=== PATIENT | male | born 1995 | race American Indian/Alaskan Native ===

== ENCOUNTER 2021-12-06 12:03 | Emergency (ER) | payer OTHER ==
[2021-12-06] MEDS ORDERED: ALBUTEROL 2.5 MG/3 ML NEBU IH ONE (12:24)
[2021-12-06] MEDS ORDERED: IPRATROPIUM 0.02% NEBU 2.5 ML IH ONE (12:24)
[2021-12-06] MEDS ORDERED: methylPREDNISolone Sod Succinate 125 MG/2 ML INJ IM ONE (12:24)
[2021-12-06] MEDS ORDERED: IBUPROFEN 600 MG TAB PO ONE (12:25)
--- NOTE | 2021-12-06 12:34 | Emergency Department Report ---
ED Back Pain/Injury HPI - General Chief Complaint: Back Pain/Injury Stated Complaint: BACK PAIN/CHEST PAIN TROUBLE BREATHING Source: patient Limitations: No Limitations - History of Present Illness Initial Comments: Patient is a 26-year-old -[place] male with a history of asthma who presents to the ED with complaint of acute onset persistent chest tightness, shortness of breath, persistent dry cough and mid posterior thoracic pain for the last 3 days. Patient states that in 2 days he has completely used and emptied 2 albuterol inhalers with mild relief. Patient denies headache, dizziness, chest pain or fever, chills, nausea and vomiting, abdominal pain, traumatic injury, heavy lifting, change in vision, neck pain, sore throat, dysuria, urinary frequency and urgency or fall. MD Complaint: back pain, other (Shortness of breath, chest tightness, asthma exacerbation) -: Sudden, days(s) (3) Similar Symptoms Previously: Yes Place: home Radiation: none Severity: moderate Quality: aching, other (Tightness) Consistency: constant Improves With: none Worsens With: movement Associated Symptoms: denies other symptoms, chest pain (Chest tightness), cough, other (Mid posterior thoracic pain). denies: confusion, weakness, difficulty walking, difficulty urinating, diaphoresis, incontinence, fever/chills, constipation, headaches, abdominal pain, loss of appetite, malaise, nausea/vomiting, rash, seizure, shortness of breath Treatments Prior to Arrival: other medications (Albuterol inhaler) - Related Data Previous Rx's Medication Instructions Recorded Last Taken Type Albuterol Sulfate [Proair 1 - 2 puff IH Q6H PRN #1 inh 12/06/21 Unknown Rx Respiclick] Baclofen 20 mg PO Q12H PRN #24 tab 12/06/21 Unknown Rx Benzonatate [Tessalon Perles] 100 mg PO Q8HR #30 cap 12/06/21 Unknown Rx Cetirizine HCl [Zyrtec 10mg tab] 10 mg PO DAILY #30 tab 12/06/21 Unknown Rx Naproxen 500 mg PO Q12H PRN #30 tab 12/06/21 Unknown Rx methylPREDNISolone [Medrol 4MG 4 mg PO DAILY #21 tab 12/06/21 Unknown Rx DOSEPAK (21 tabs)] Allergies Allergy/AdvReac Type Severity Reaction Status Date / Time No Known Allergies Allergy Verified 12/06/21 12:23 ED Review of Systems ROS: Stated complaint: BACK PAIN/CHEST PAIN TROUBLE BREATHING Other details as noted in HPI Constitutional: denies: chills, fever Eyes: denies: eye pain, eye discharge, vision change ENT: denies: ear pain, throat pain Respiratory: denies: cough, shortness of breath, wheezing Cardiovascular: denies: chest pain, palpitations Endocrine: no symptoms reported Gastrointestinal: denies: abdominal pain, nausea, diarrhea Genitourinary: denies: urgency, dysuria Musculoskeletal: denies: back pain, joint swelling, arthralgia Skin: denies: rash, lesions Neurological: denies: headache, weakness, paresthesias Psychiatric: denies: anxiety, depression Hematological/Lymphatic: denies: easy bleeding, easy bruising ED Past Medical Hx - Medications Home Medications: Home Medications Medication Instructions Recorded Confirmed Last Taken Type Albuterol Sulfate [Proair 1 - 2 puff IH Q6H PRN #1 inh 12/06/21 Unknown Rx Respiclick] Baclofen 20 mg PO Q12H PRN #24 tab 12/06/21 Unknown Rx Benzonatate [Tessalon Perles] 100 mg PO Q8HR #30 cap 12/06/21 Unknown Rx Cetirizine HCl [Zyrtec 10mg tab] 10 mg PO DAILY #30 tab 12/06/21 Unknown Rx Naproxen 500 mg PO Q12H PRN #30 tab 12/06/21 Unknown Rx methylPREDNISolone [Medrol 4MG 4 mg PO DAILY #21 tab 12/06/21 Unknown Rx DOSEPAK (21 tabs)] ED Physical Exam - General Limitations: No Limitations General appearance: alert, in no apparent distress - Head Head exam: Present: atraumatic, normocephalic, normal inspection - Eye Eye exam: Present: normal appearance, PERRL, EOMI Pupils: Present: normal accommodation - ENT ENT exam: Present: normal exam, normal orophraynx, mucous membranes moist, TM's normal bilaterally, normal external ear exam - Neck Neck exam: Present: normal inspection, full ROM. Absent: tenderness - Respiratory Respiratory exam: Present: wheezes (Mildly diffuse coarse wheezes throughout). Absent: normal lung sounds bilaterally, respiratory distress, rales, rhonchi, stridor, chest wall tenderness, accessory muscle use, decreased breath sounds, prolonged expiratory - Cardiovascular Cardiovascular Exam: Present: regular rate, normal rhythm, normal heart sounds. Absent: systolic murmur, diastolic murmur, rubs, gallop - GI/Abdominal GI/Abdominal exam: Present: soft, normal bowel sounds. Absent: tenderness, guarding, rebound, hyperactive bowel sounds, hypoactive bowel sounds, organomegaly - Extremities Exam Extremities exam: Present: normal inspection, full ROM, normal capillary refill - Back Exam Back exam: Present: normal inspection, full ROM. Absent: tenderness, CVA tenderness (R), CVA tenderness (L), muscle spasm, paraspinal tenderness, vertebral tenderness - Neurological Exam Neurological exam: Present: alert, oriented X3, CN II-XII intact, normal gait, reflexes normal - Psychiatric Psychiatric exam: Present: normal affect, normal mood, anxious - Skin Skin exam: Present: warm, dry, intact, normal color. Absent: rash ED Course Vital Signs 12/06/21 12/06/21 12/06/21 12:25 13:39 14:34 Temperature 98.9 F 97.0 F L Pulse Rate 75 84 88 Respiratory 18 18 16 Rate Blood Pressure 114/66 125/74 Blood Pressure 131/87 [Left] O2 Sat by Pulse 99 100 97 Oximetry ED Medical Decision Making - Radiology Data Radiology results: report reviewed, [place] [address] XRay Report Signed Patient: KIYA PETER MR#: [id number] : 1995 Acct:[id number] Age/Sex: 26 / M ADM Date: 12/06/21 Loc: ED Attending Dr: Ordering Physician: SOILA ADORNO Date of Service: 12/06/21 Procedure(s): XR chest routine 2V Accession Number(s): [id number] cc: SOILA ADORNO Fluoro Time In Minutes: CHEST 2 VIEWS INDICATION: DYSPNEA, WHEEZINNG. COMPARISON: None. FINDINGS: Support devices: None. Heart: Within normal limits. Lungs/Pleura: No acute air space or interstitial disease. No significant pleural effusion. IMPRESSION: No acute findings. Signer Name: Rishi Solis MD Signed: 12/06/2021 12:59 PM Workstation Name: [id number] Transcribed By: ES Dictated By: Rishi Solis MD Electronically Authenticated By: Rishi Solis MD Signed Date/Time: 12/06/211258 DD/ 57 TD/TT: Print Cancel - Medical Decision Making This is a 26-year-old -[place] male with a history of asthma who presents to the ED with complaint of acute onset persistent chest tightness, shortness of breath, persistent dry cough and mid posterior thoracic pain for the last 3 days. Patient states that in 2 days he has completely used and emptied 2 albuterol inhalers with mild relief. In the ED, patient is alert and oriented x3 and is not in any distress. Patient was treated in the ED with Solu-Medrol and also received albuterol and ipratropium nebulizers in the ED. Patient was also treated for pain with ibuprofen. Chest x-ray showed no acute cardiopulmonary abnormalities or pneumonitis. On reevaluation, patient's wheezing resolved, patient felt better, with oxygen saturation of 100% on room air. Patient will discharge home on medications and advised to follow-up with his primary care physician in 7 to 10 days for reevaluation. Patient was advised to return to the ED immediately if symptoms get worse. - Differential Diagnosis Asthma; bronchitis; rhinitis; muscle spasm of back; Critical care attestation.: If time is entered above; I have spent that time in minutes in the direct care of this critically ill patient, excluding procedure time. ED Disposition Clinical Impression: Acute bronchitis with asthma with acute exacerbation, Spasm of thoracic back muscle Disposition: 01 HOME / SELF CARE / HOMELESS Is pt being admited?: No Does the pt Need Aspirin: No Condition: Stable Instructions: Muscle Cramps and Spasms, [id number], Cough, Adult, [id number], Acute Bronchitis, Adult, [id number], Asthma, Adult, [id number] Additional Instructions: Chest x-ray showed no acute cardiopulmonary abnormalities or pneumonitis. Your back pain is likely musculoskeletal muscle spasm. Therefore take medication as advised for pain, take your regular medications for asthma and follow-up with your primary care physician in 5 to 7 days for reevaluation. Return to the ED immediately if symptoms get worse. Prescriptions: Baclofen 20 mg PO Q12H PRN #24 tab PRN Reason: Muscle Spasm methylPREDNISolone [Medrol 4MG DOSEPAK (21 tabs)] 4 mg PO DAILY #21 tab Naproxen 500 mg PO Q12H PRN #30 tab PRN Reason: Pain , Severe (7-10) Albuterol Sulfate [Proair Respiclick] 1 - 2 puff IH Q6H PRN #1 inh PRN Reason: Shortness Of Breath Benzonatate [Tessalon Perles] 100 mg PO Q8HR #30 cap Cetirizine HCl [Zyrtec 10mg tab] 10 mg PO DAILY #30 tab Referrals: MACEY HANLEY MD [Staff Physician] - 3-5 Days Forms: Work/School Release Form(ED) Time of Disposition: 14:12 Print Language: [place]
--- NOTE | 2021-12-06 13:03 | XRay Report ---
CHEST 2 VIEWS INDICATION: DYSPNEA, WHEEZINNG. COMPARISON: None. FINDINGS: Support devices: None. Heart: Within normal limits. Lungs/Pleura: No acute air space or interstitial disease. No significant pleural effusion. IMPRESSION: No acute findings. Signer Name: Rishi Solis MD Signed: 12/06/2021 12:59 PM Workstation Name: [id number]
[2021-12-06 14:35] VITALS: BP 131/87
== END 2021-12-06 14:34 | disposition home or self-care (01) ==
LOC: ED 12:03
DX: J20.9 Acute bronchitis, unspecified (principal); J45.901 Unspecified asthma with (acute) exacerbation; M62.830 Muscle spasm of back
CPT/HCPCS: 71046; 94640; 96372; 99283; J2930